=== PATIENT | female | born 1985 | race Caucasian/White ===

== ENCOUNTER 2023-06-25 13:29 | Inpatient (IN) | payer SELFPAY ==
[~2023-06-25] VITALS: Ht 162.6 cm; Wt 69.0 kg
[2023-06-25] MEDS ORDERED: Ondansetron 4 MG/2 ML VIAL IV ONE (14:00)
[2023-06-25] MEDS ORDERED: NS 1,000 ML IV SCH ×3 (14:00→17:30)
[2023-06-25] MEDS ORDERED: Pantoprazole 40 MG in NS 10 ML IV ONE (14:00)
[2023-06-25 14:27] LABS: HEMATOCRIT 39.5 % (37.0-47.0); HEMOGLOBIN 13.4 g/dL (12.5-16.0); MEAN CELL VOLUME 84 fl (78-100); MEAN CORPUSCULAR HEMOGLOBIN 29 pg (27-31); MEAN CORPUSCULAR HGB CONC 34 g/dL (33-37); MEAN PLATELET VOLUME 11.9 fl (7.4-10.4); PLATELET COUNT 172 K/mm3 (130-400); RED CELL DISTRIBUTION WIDTH 12.7 % (11.5-14.5); WHITE BLOOD COUNT 11.7 K/mm3 (4.8-10.8)
[2023-06-25] MEDS ORDERED: fentaNYL 100 MCG/2 ML VIAL IV ONE (14:30)
[2023-06-25 14:39] LABS: SODIUM 139 mmol/L (136-145)
[2023-06-25 14:40] LABS: CALCIUM 9.2 mg/dL (8.3-10.5)
[2023-06-25 14:41] LABS: GLUCOSE 157 mg/dL (65-105); TOTAL PROTEIN 6.5 g/dL (6.4-8.3)
[2023-06-25 14:42] LABS: CARBON DIOXIDE 25 mmol/L (22-29)
[2023-06-25 14:43] LABS: TOTAL BILIRUBIN 1.6 mg/dL (0.2-1.2)
[2023-06-25 14:46] LABS: AST-SGOT 557 U/L (5-34)
[2023-06-25 14:48] LABS: ALT/SGPT 292 U/L (0-55)
[2023-06-25] MEDS ORDERED: Iohexol 300 - 100 ML VIAL IV ONE (14:56)
[2023-06-25 14:58] LABS: BAND 5 % (0-10); LYMPHOCYTE 6 % (20-51); MONOCYTE 6 % (3-10)
[2023-06-25 14:59] LABS: NEUTROPHILS 83 % (42-75)
[2023-06-25 16:18] LABS: LIPASE > 12000 U/L (8-78)
[2023-06-25] MEDS ORDERED: Morphine 4 MG/ML VIAL IV ONE (16:45)
[2023-06-25 17:29] VITALS: BP 105/65
[2023-06-25] MEDS ORDERED: Morphine 4 MG/ML VIAL IV PRN (17:30)
[2023-06-25] MEDS ORDERED: fentaNYL 100 MCG/2 ML VIAL IV PRN (17:30)
[2023-06-25] MEDS ORDERED: Ondansetron 4 MG/2 ML VIAL IV PRN (17:30)
[2023-06-25] MEDS ORDERED: Pantoprazole 40 MG in NS 10 ML IV SCH (17:30)
--- NOTE | 2023-06-25 19:15 | NUR ---
PATIENT ADMITTED FROM ER. SHE DOES NOT SPEAK [place]. HER NEPHEW AND BROTHER IN LAW ARE IN ROOM TO HELP TRANSLATE. SHE WAS ADMITTED WITH PANCREATITIS. SHE IS DROWSEY FROM THE MEDICATIONS GIVEN FOR PAIN CONTROL, BUT EASY TO ARROUSE. HER PAIN WAS A 9/10 IN ER AND KNOW SHE RATED IT A 3-4/10. STAFF WILL CONT. TO MONITOR.
[2023-06-25] MEDS ORDERED: Docusate Sodium 100 MG CAP PO SCH (21:00)
[2023-06-25 22:07] VITALS: BP 110/72
[2023-06-25 22:29] LABS: URINE APPEARANCE CLOUDY (CLEAR); URINE COLOR YELLOW (YELLOW)
[2023-06-25 22:38] LABS: URINE BILIRUBIN 1+ (NEGATIVE); URINE BLOOD TRACE-INTACT (NEGATIVE); URINE GLUCOSE NEGATIVE (NEGATIVE); URINE KETONE NEGATIVE (NEGATIVE); URINE LEUKOCYTE ESTERASE TRACE (NEGATIVE); URINE NITRATE POSITIVE (NEGATIVE); URINE PROTEIN(semi-quant) 1+ (NEGATIVE)
[2023-06-25] MEDS ORDERED: cefTRIAXone 1 G in Water For Injection,Sterile 10 ML IV SCH (23:30)
--- NOTE | 2023-06-25 23:49 | NUR ---
pt reported feeling itchines in her mouth this as a possible consecuence to an unknown allergie to ceftriaxone. this rn administered ceftriaxon 1gm iv as per emar. pt reported feeling itchines in mouth about a minute after administration. This rn reported the situation to provider Abel and orders for 50mg diphenhydramine iv and 125 solumedrol iv where given and executed. this rn will stay at pt bedisde for 15 minutes post intervention to monitor pt. pt denies feeling soa, or throat swelling. Hives where noted in pts wrist, face and neck.
[2023-06-26] MEDS ORDERED: Famotidine 20 MG/2 ML VIAL IV ONE ×2 (00:15→11:00)
[2023-06-26 02:42] VITALS: BP 109/63
[2023-06-26] MEDS ORDERED: diphenhydrAMINE 25 MG CAP PO SCH (05:00)
[2023-06-26 05:48] VITALS: BP 106/65
[2023-06-26 06:15] LABS: BASO # 0.01 K/mm3 (0.02-0.10); LYMPH# 0.18 K/mm3 (1.50-4.00); MEAN CELL VOLUME 86 fl (78-100); MEAN CORPUSCULAR HEMOGLOBIN 29 pg (27-31); MEAN CORPUSCULAR HGB CONC 33 g/dL (33-37); MONO # 0.48 K/mm3 (0.20-0.80); NEU # 11.74 K/mm3 (1.40-6.50); PLATELET COUNT 159 K/mm3 (130-400); RED BLOOD COUNT 4.53 M/mm3 (4.10-5.30); RED CELL DISTRIBUTION WIDTH 13.2 % (11.5-14.5); WHITE BLOOD COUNT 12.4 K/mm3 (4.8-10.8)
[2023-06-26 06:24] LABS: ALBUMIN 3.6 g/dL (3.5-5.0)
[2023-06-26 06:25] LABS: CALCIUM 8.7 mg/dL (8.3-10.5)
[2023-06-26 06:26] LABS: TOTAL PROTEIN 5.9 g/dL (6.4-8.3)
[2023-06-26 06:28] LABS: TOTAL BILIRUBIN 3.2 mg/dL (0.2-1.2)
[2023-06-26] MEDS ORDERED: Famotidine 20 MG TAB PO SCH (09:00)
[2023-06-26] MEDS ORDERED: predniSONE 10 MG TAB PO SCH (09:00)
[2023-06-26] MEDS ORDERED: methylPREDNISolone Sod Succ 125 MG/2 ML VIAL IV ONE (11:00)
[2023-06-26] MEDS ORDERED: EPINEPHrine 0.3 MG/0.3 ML Auto Injector IM ONE ×2 (23:45)
== END 2023-06-26 17:30 | disposition short-term general hospital (02) | DRG 440 ==
LOC: ED 13:29 → MED/SURG 16:51
PROVIDERS: Physician Assistant; ADMIT Family Medicine
DX: K85.90 Acute pancreatitis without necrosis or infection, unspecified (principal); R11.2 Nausea with vomiting, unspecified
CPT/HCPCS: C9113; J0696; J1650; J2270; J2405; J2765; J2919; J3010; J3490; J7030; Q9967